=== PATIENT | male | born 1930 | race Two or more races ===

== ENCOUNTER 2018-07-12 14:47 | Inpatient (IN) | payer MEDICARE, BC ==
[~2018-07-12] VITALS: Ht 170.2 cm; Wt 85.3 kg
--- NOTE | 2018-07-12 14:47 | NUR ---
Received patient awake, verbal, wanting to go home, does not follow command & extremely uncooperative at the moment, MARIA, respiration:easy. Patient is for medical clearance by our ER doctor.
[2018-07-12] MEDS ORDERED: MEMA28CA5 PO (15:05)
[2018-07-12] MEDS ORDERED: CYAN10009 PO (15:05)
[2018-07-12] MEDS ORDERED: ATOR40TA PO (15:05)
[2018-07-12] MEDS ORDERED: COLC0.6T67 PO (15:05)
[2018-07-12] MEDS ORDERED: DONE10TA44 PO (15:05)
[2018-07-12] MEDS ORDERED: LOPE2CAP40 PO (15:05)
[2018-07-12] MEDS ORDERED: LEVE500T20 PO (15:05)
[2018-07-12] MEDS ORDERED: FEBU40TA PO (15:05)
[2018-07-12] MEDS ORDERED: LOSA50TA39 PO (15:05)
[2018-07-12] MEDS ORDERED: TAMS0.4C34 PO (15:05)
[2018-07-12] MEDS ORDERED: CHOL378P PO (15:05)
[2018-07-12] MEDS ORDERED: LORAZEPAM 2 MG/1 ML VIAL IM ONE (15:30)
[2018-07-12] MEDS ORDERED: HALOPERIDOL LACTATE 5 MG/1 ML VIAL IM ONE (15:30)
[2018-07-12] MEDS ORDERED: diphenhydrAMINE 50 MG/1 ML VIAL IM ONE (15:30)
[2018-07-12] MEDS ORDERED: HALOPERIDOL LACTATE 5 MG/1 ML VIAL ONE (15:32)
[2018-07-12] MEDS ORDERED: diphenhydrAMINE 50 MG/1 ML VIAL ONE (15:32)
[2018-07-12] MEDS ORDERED: LORAZEPAM 2 MG/1 ML VIAL ONE (15:32)
--- NOTE | 2018-07-12 16:16 | NUR ---
Aundrea-anal care done. Dried fecal matter seen on the buttocks & feet.
[2018-07-12 16:34] LABS: BASOPHILS # (AUTO) 0.1 K/uL (0.0-8.0); BASOPHILS % (AUTO) 1.1 % (0.0-2.0); EOSINOPHILS # (AUTO) 0.2 K/uL (0.0-0.7); EOSINOPHILS % (AUTO) 3.6 % (0.0-7.0); HEMOGLOBIN 13.3 g/dL (12.5-16.3); LYMPHOCYTES # (AUTO) 1.7 K/uL (20.0-40.0); LYMPHOCYTES % (AUTO) 28.7 % (20.5-51.5); MEAN CORPUSCULAR HEMOGLOBIN 32.8 uug (23.8-33.4); MEAN CORPUSCULAR HGB CONC 34 g/dL (32.5-36.3); MEAN CORPUSCULAR VOLUME 96.4 fL (73.0-96.2); MONOCYTES # (AUTO) 0.5 K/uL (2.0-10.0); MONOCYTES % (AUTO) 7.9 % (0.0-11.0); NEUTROPHILS # (AUTO) 3.6 K/uL (1.8-8.9); NEUTROPHILS % (AUTO) 58.7 % (38.5-71.5); PLATELET COUNT (AUTO) 134 K/uL (152-348); RED BLOOD CELL COUNT(AUTO) 4.05 MIL/uL (4.06-5.63); WHITE BLOOD COUNT (AUTO) 6.1 K/uL (3.6-10.2)
[2018-07-12 16:44] LABS: CARBON DIOXIDE 24 mmol/L (21-32); CHLORIDE 111 mmol/L (98-107); CREATININE 1.7 mg/dL (0.6-1.3); GLUCOSE 109 mg/dL (74-106); UREA NITROGEN, BLOOD 24 mg/dL (7-18)
[2018-07-12 16:46] LABS: ETHANOL < 3 MG/DL (0-0)
[2018-07-12 16:50] LABS: ACETAMINOPHEN < 2.0 ug/mL (10-30); ALANINE AMINOTRANSFERASE 22 U/L (16-63); ALKALINE PHOSPHATASE 123 U/L (50-136); ASPARTATE AMINOTRANSFERASE 14 U/L (15-37); BILIRUBIN,DIRECT 0.2 mg/dL (0.0-0.2); BILIRUBIN,TOTAL 0.8 mg/dL (0.2-1.0); TOTAL PROTEIN, SERUM 6.6 g/dL (6.4-8.2)
[2018-07-12 16:58] LABS: THYROID STIMULATING HORMONE 2.627 mIU/mL (0.358-3.740)
--- NOTE | 2018-07-12 17:45 | NUR ---
Patient is medically cleared by Dr Delgado. Patient is resting comfortably on gurney, directable, MARIA, respiration:easy- for transfer & admission to [facility] now.
[2018-07-12 18:06] LABS: *BILIRUBIN,URIN NEGATIVE (NEGATIVE); *BLOOD, URINE 1+ (NEGATIVE); *COLOR,URINE YELLOW (YELLOW); *KETONES,URINE NEGATIVE (NEGATIVE); *UROBILINOGEN,URINE 0.2 E.U./dl (NORMAL); LEUKOCYTE ESTERASE ,URINE TRACE (NEGATIVE); NITRITE, URINE NEGATIVE (NEGATIVE); PH,URINE 5.5 (5.0-8.0); UGLUCOSE NEGATIVE (NEGATIVE)
[2018-07-12 18:20] LABS: *AMPHETAMINE, URINE NEGATIVE (NEGATIVE); *BARBITURATE, URINE NEGATIVE (NEGATIVE); *CANNABINOID, URINE NEGATIVE (NEGATIVE); *COCCAINE, URINE NEGATIVE (NEGATIVE); *OPIATE, URINE NEGATIVE (NEGATIVE); *PHENCYCLIDINE SCREEN,URINE NEGATIVE (NEGATIVE)
[2018-07-12 18:23] LABS: *CLARITY,URINE HAZY (CLEAR)
[2018-07-12 18:25] LABS: MUCUS,URINE MODERATE /LPF (0-FEW); SQUAMOUS EPITHELIAL CELL,UR FEW /HPF (NONE SEEN); URINE AMORPHOUS URATE MODERATE /HPF
[2018-07-12] MEDS ORDERED: MAG HYDROX/AL HYDROX/SIMETH 30 ML LIQUID UDC PO PRN (18:45)
[2018-07-12] MEDS ORDERED: TEMAZEPAM 7.5 MG CAPSULE PO PRN (18:45)
[2018-07-12] MEDS ORDERED: MAGNESIUM HYDROXIDE 30 ML LIQUID UDC PO PRN (18:45)
--- NOTE | 2018-07-12 20:00 | NUR ---
GPS: Admitted to unit earlier an 87 yr.old male who was medically cleared in our E.R. Pt. arrived via gurney. Pt.is on a 72 hour hold for DTO/GD. Pt.too sedated but arousable at this time. Unable to sign papers/answer questions. Daughter "Mavis" made aware of pts admission to the unit. /CELESTINE Montoya aware of pts.arrival to the unit. Safe environment provided. Fall precautions observed. In no resp.distress noted.
[2018-07-12 20:04] VITALS: BP 152/76
[2018-07-12 20:27] VITALS: BP 152/76
[2018-07-12] MEDS: CHOLESTYRAMINE/SUCROSE 4 GM PACKET PO SCH (21:00)
[2018-07-12] MEDS: ATORVASTATIN 40 MG TABLET PO SCH (21:00)
[2018-07-13] MEDS: LORAZEPAM 1 MG TABLET PO PRN (05:07)
--- NOTE | 2018-07-13 05:10 | NUR ---
GPS: Pt.awake at this time. Confused,anxious and restless. Pacing up and down the hallway. Re-directed and re-assured at this time. Ativan 1mg given PO for anxiety. No aggressive behavior noted. Safety emphasized. Will monitor effectiveness and for further escalation of behavior.
[2018-07-13] MEDS: LEVETIRACETAM 500 MG TABLET PO SCH ×2 (08:33→16:07)
[2018-07-13] MEDS: LOSARTAN POTASSIUM 50 MG TABLET PO SCH (08:34)
[2018-07-13] MEDS: CHOLESTYRAMINE/SUCROSE 4 GM PACKET PO SCH ×2 (08:34→20:03)
[2018-07-13] MEDS: CYANOCOBALAMIN 1,000 MCG TABLET PO SCH (08:34)
[2018-07-13] MEDS: TAMSULOSIN HCL 0.4 MG CAP.SR.24H PO SCH (08:34)
[2018-07-13] MEDS: COLCHICINE 0.6 MG TABLET PO SCH (08:34)
--- NOTE | 2018-07-13 12:21 | NUR ---
PT CONFUSED AND DISORIENTED. UNSTEADY GAIT. PT ATTEMPTING TO SIT IN CHAIR, HELD ONTO TABLE WITH HANDS, WHILE USING HIS LEGS TO SQUAT TO LOWER BUTTOCKS TO FLOOR. DENIES PAIN OR DISCOMFORT. ABLE TO MAKE SOME NEEDS KNOWN. NO AGGRESSIVE OR COMBATIVE BEHAVIOR NOTED AT THIS TIME. DIFFICULT TO REDIRECT AT TIMES. POOR IMPULSE CONTROL.
--- NOTE | 2018-07-13 16:00 | NUR ---
Initial Discharge Plan: Patient is a 87 year old male who is a current resident at [facility] [[address] [place] [address]; ]. Per patient he states he likes it at the facility. power lineworker contacted the facility and spoke with precast worker, Yasir, regarding patient returning back to facility. Per Yasir, she will contact her supervisor chlorine liquefaction and call back. power lineworker to follow-up. power lineworker attempted to call patient daughterMavis [ ] , twice but received no answer and was unable to leave voicemail as phone just kept ringing. power lineworker to follow-up with patient daughter. power lineworker will collaborate with patient and MD on a safe and proper discharge. Addendum: 07/17/18 at 1548 by NIURKA VEGA Additional information: Additional information from patient daughter 07/17/2018: Per patient daughter/BETSYMavis [ ], she does not want her father to returnt to [facility]. Mavis states she is in the process of touring different [facility] for her father and mother. Mavis states that if an [facility] cannot be found prior to patient discharge, that she is open to short-term SNF placement.
[2018-07-13 16:45] VITALS: BP 137/92
--- NOTE | 2018-07-13 19:41 | NUR ---
GPS: Pt's B/P at this time is 152/107. ENGINEER GAS PUMPING STATION Rosa Maria informed with no new orders given. Will monitor closely.
[2018-07-13 19:45] VITALS: BP 152/107
[2018-07-13] MEDS: risperiDONE 0.5 MG TABLET PO SCH (20:03)
[2018-07-13] MEDS: ATORVASTATIN 40 MG TABLET PO SCH (20:03)
[2018-07-13] MEDS: RIVASTIGMINE TARTRATE 1.5 MG CAPSULE PO SCH (20:03)
[2018-07-13] MEDS: CEphaleXIN 500 MG CAPSULE PO SCH (22:09)
[2018-07-14] MEDS: CEphaleXIN 500 MG CAPSULE PO SCH ×3 (06:09→21:02)
[2018-07-14 07:30] VITALS: BP 154/88
[2018-07-14] MEDS: RIVASTIGMINE TARTRATE 1.5 MG CAPSULE PO SCH ×2 (08:32→20:23)
[2018-07-14] MEDS: TAMSULOSIN HCL 0.4 MG CAP.SR.24H PO SCH (08:32)
[2018-07-14] MEDS: LOSARTAN POTASSIUM 50 MG TABLET PO SCH (08:32)
[2018-07-14] MEDS: CHOLESTYRAMINE/SUCROSE 4 GM PACKET PO SCH ×2 (08:32→20:28)
[2018-07-14] MEDS: risperiDONE 0.5 MG TABLET PO SCH ×2 (08:32→20:24)
[2018-07-14] MEDS: CYANOCOBALAMIN 1,000 MCG TABLET PO SCH (08:32)
[2018-07-14] MEDS: COLCHICINE 0.6 MG TABLET PO SCH (08:32)
[2018-07-14] MEDS: LEVETIRACETAM 500 MG TABLET PO SCH ×2 (08:33→16:53)
[2018-07-14] MEDS: ACETAMINOPHEN 325 MG TABLET PO PRN (12:24)
[2018-07-14 16:01] VITALS: BP 94/55
[2018-07-14 20:19] VITALS: BP 90/55
[2018-07-14] MEDS: ATORVASTATIN 40 MG TABLET PO SCH (20:23)
[2018-07-14 20:24] VITALS: BP 134/88
[2018-07-14] MEDS: LORAZEPAM 1 MG TABLET PO PRN (21:05)
[2018-07-15] MEDS: CEphaleXIN 500 MG CAPSULE PO SCH ×3 (06:12→21:18)
[2018-07-15 07:12] LABS: BASOPHILS % (AUTO) 0.6 % (0.0-2.0); EOSINOPHILS # (AUTO) 0.2 K/uL (0.0-0.7); HEMATOCRIT 40.5 % (36.7-47.1); HEMOGLOBIN 13.5 g/dL (12.5-16.3); LYMPHOCYTES # (AUTO) 2.3 K/uL (20.0-40.0); LYMPHOCYTES % (AUTO) 29.6 % (20.5-51.5); MEAN CORPUSCULAR HGB CONC 33 g/dL (32.5-36.3); MEAN CORPUSCULAR VOLUME 95.7 fL (73.0-96.2); MONOCYTES # (AUTO) 0.6 K/uL (2.0-10.0); MONOCYTES % (AUTO) 8.3 % (0.0-11.0); NEUTROPHILS # (AUTO) 4.6 K/uL (1.8-8.9); NEUTROPHILS % (AUTO) 58.5 % (38.5-71.5); PLATELET COUNT (AUTO) 136 K/uL (152-348); RED BLOOD CELL COUNT(AUTO) 4.23 MIL/uL (4.06-5.63); WHITE BLOOD COUNT (AUTO) 7.8 K/uL (3.6-10.2)
[2018-07-15 07:33] LABS: CARBON DIOXIDE 22 mmol/L (21-32); CHLORIDE 110 mmol/L (98-107); CREATININE 2.5 mg/dL (0.6-1.3); GLUCOSE 89 mg/dL (74-106); MAGNESIUM 1.9 mg/dL (1.8-2.4); PHOSPHOROUS 4.6 mg/dL (2.5-4.9)
[2018-07-15 08:16] VITALS: BP 145/76
[2018-07-15 08:16] LABS: UREA NITROGEN, BLOOD 42 mg/dL (7-18)
[2018-07-15] MEDS: risperiDONE 0.5 MG TABLET PO SCH ×2 (08:31→20:23)
[2018-07-15] MEDS: TAMSULOSIN HCL 0.4 MG CAP.SR.24H PO SCH (08:31)
[2018-07-15] MEDS: LEVETIRACETAM 500 MG TABLET PO SCH ×2 (08:31→16:02)
[2018-07-15] MEDS: COLCHICINE 0.6 MG TABLET PO SCH (08:31)
[2018-07-15] MEDS: RIVASTIGMINE TARTRATE 1.5 MG CAPSULE PO SCH ×2 (08:31→20:23)
[2018-07-15] MEDS: CYANOCOBALAMIN 1,000 MCG TABLET PO SCH (08:32)
[2018-07-15] MEDS: LOSARTAN POTASSIUM 50 MG TABLET PO SCH (08:32)
[2018-07-15] MEDS: CHOLESTYRAMINE/SUCROSE 4 GM PACKET PO SCH ×2 (08:40→20:25)
[2018-07-15] MEDS: ACETAMINOPHEN 325 MG TABLET PO PRN (12:28)
[2018-07-15 16:00] VITALS: BP 104/69
[2018-07-15 19:53] VITALS: BP 128/81
[2018-07-15] MEDS: ATORVASTATIN 40 MG TABLET PO SCH (20:23)
[2018-07-15] MEDS ORDERED: CEphaleXIN 500 MG CAPSULE ONE (20:31)
[2018-07-16] MEDS: CEphaleXIN 500 MG CAPSULE PO SCH (06:20)
[2018-07-16 07:30] VITALS: BP 135/65
[2018-07-16 08:05] LABS: BASOPHILS # (AUTO) 0.1 K/uL (0.0-8.0); EOSINOPHILS # (AUTO) 0.3 K/uL (0.0-0.7); EOSINOPHILS % (AUTO) 3.9 % (0.0-7.0); HEMATOCRIT 40.3 % (36.7-47.1); HEMOGLOBIN 13.5 g/dL (12.5-16.3); LYMPHOCYTES # (AUTO) 2.4 K/uL (20.0-40.0); LYMPHOCYTES % (AUTO) 29.8 % (20.5-51.5); MEAN CORPUSCULAR HEMOGLOBIN 32.1 uug (23.8-33.4); MEAN CORPUSCULAR HGB CONC 33 g/dL (32.5-36.3); MEAN CORPUSCULAR VOLUME 95.9 fL (73.0-96.2); MONOCYTES # (AUTO) 0.6 K/uL (2.0-10.0); MONOCYTES % (AUTO) 7.9 % (0.0-11.0); NEUTROPHILS # (AUTO) 4.6 K/uL (1.8-8.9); NEUTROPHILS % (AUTO) 57.4 % (38.5-71.5); PLATELET COUNT (AUTO) 127 K/uL (152-348); WHITE BLOOD COUNT (AUTO) 8.1 K/uL (3.6-10.2)
[2018-07-16] MEDS: risperiDONE 0.5 MG TABLET PO SCH ×2 (08:19→20:18)
[2018-07-16] MEDS: RIVASTIGMINE TARTRATE 1.5 MG CAPSULE PO SCH ×2 (08:19→20:18)
[2018-07-16] MEDS: CYANOCOBALAMIN 1,000 MCG TABLET PO SCH (08:19)
[2018-07-16] MEDS: TAMSULOSIN HCL 0.4 MG CAP.SR.24H PO SCH (08:19)
[2018-07-16] MEDS: LEVETIRACETAM 500 MG TABLET PO SCH ×2 (08:19→16:50)
[2018-07-16 08:23] LABS: ALANINE AMINOTRANSFERASE 23 U/L (16-63); ALKALINE PHOSPHATASE 134 U/L (50-136); ASPARTATE AMINOTRANSFERASE 21 U/L (15-37); BILIRUBIN,TOTAL 0.6 mg/dL (0.2-1.0); CARBON DIOXIDE 18 mmol/L (21-32); CHLORIDE 114 mmol/L (98-107); CREATININE 2.4 mg/dL (0.6-1.3); GLUCOSE 84 mg/dL (74-106); MAGNESIUM 1.9 mg/dL (1.8-2.4); PHOSPHOROUS 4.2 mg/dL (2.5-4.9); POTASSIUM 4.7 mmol/L (3.5-5.1); TOTAL PROTEIN, SERUM 6.4 g/dL (6.4-8.2); UREA NITROGEN, BLOOD 51 mg/dL (7-18)
[2018-07-16] MEDS: CHOLESTYRAMINE/SUCROSE 4 GM PACKET PO SCH ×2 (08:34→20:18)
--- NOTE | 2018-07-16 09:46 | NUR ---
Discharge planning: scaffold worker called and spoke with professional development director, Justine Morales, at [facility] [[address] [place] [address]; ] regarding re-admittance upon discharge. Per Justine, patient may return pending improved behavior. Justine states that she will need to speak with Dr. Rivera regarding patient behavior and need a physician's report. scaffold worker will follow-up with [facility].
--- NOTE | 2018-07-16 10:34 | NUR ---
Firearms Report: head screen worker completed and submitted a [employer] firearms report for a 5150 DTO certification.
--- NOTE | 2018-07-16 10:38 | NUR ---
Discharge Planning: scaffold worker attempted for 3rd time to contact patient daughter, Mavis Olvera [[phone]], but was unable to speak with her or leave a voicemail as phone kept ringing and ringing. scaffold worker checked patient chart and found there was a different number listed for Mavis "[phone]". scaffold worker called this number and was again unable to speak with her or leave a voicemail as the mailbox was full. scaffold worker will continue to try and make contact with patient daughter.
[2018-07-16 15:10] VITALS: BP 112/68
[2018-07-16] MEDS: ACETAMINOPHEN 325 MG TABLET PO PRN (17:02)
[2018-07-16 20:01] VITALS: BP 113/81
[2018-07-16] MEDS: ATORVASTATIN 40 MG TABLET PO SCH (20:18)
[2018-07-16 20:25] LABS: *BILIRUBIN,URIN NEGATIVE (NEGATIVE); *BLOOD, URINE 1+ (NEGATIVE); *COLOR,URINE YELLOW (YELLOW); *KETONES,URINE TRACE (NEGATIVE); *UROBILINOGEN,URINE 0.2 E.U./dl (NORMAL); LEUKOCYTE ESTERASE ,URINE TRACE (NEGATIVE); NITRITE, URINE NEGATIVE (NEGATIVE); UGLUCOSE NEGATIVE (NEGATIVE)
[2018-07-16 20:45] LABS: *CLARITY,URINE SLIGHTLY HAZY (CLEAR)
[2018-07-16 20:46] LABS: BACTERIA,URINE FEW /HPF (NONE SEEN); SQUAMOUS EPITHELIAL CELL,UR FEW /HPF (NONE SEEN)
[2018-07-16 20:49] LABS: *CREATININE,URINE 195.6 mg/dL (30-125); *URINE TOTAL PROTEIN RANDOM 71.9 mg/dL (<150/24HR)
[2018-07-17 07:18] LABS: BASOPHILS # (AUTO) 0.1 K/uL (0.0-8.0); BASOPHILS % (AUTO) 0.9 % (0.0-2.0); EOSINOPHILS # (AUTO) 0.3 K/uL (0.0-0.7); EOSINOPHILS % (AUTO) 3.8 % (0.0-7.0); HEMATOCRIT 41.4 % (36.7-47.1); HEMOGLOBIN 13.8 g/dL (12.5-16.3); LYMPHOCYTES # (AUTO) 2.3 K/uL (20.0-40.0); LYMPHOCYTES % (AUTO) 28.9 % (20.5-51.5); MEAN CORPUSCULAR HGB CONC 33 g/dL (32.5-36.3); MEAN CORPUSCULAR VOLUME 95.8 fL (73.0-96.2); MONOCYTES # (AUTO) 0.7 K/uL (2.0-10.0); MONOCYTES % (AUTO) 8.4 % (0.0-11.0); NEUTROPHILS # (AUTO) 4.7 K/uL (1.8-8.9); PLATELET COUNT (AUTO) 141 K/uL (152-348); RED BLOOD CELL COUNT(AUTO) 4.32 MIL/uL (4.06-5.63); WHITE BLOOD COUNT (AUTO) 8.1 K/uL (3.6-10.2)
[2018-07-17 07:30] VITALS: BP 146/86
[2018-07-17 07:35] LABS: CARBON DIOXIDE 19 mmol/L (21-32); CHLORIDE 117 mmol/L (98-107); CREATININE 1.9 mg/dL (0.6-1.3); GLUCOSE 93 mg/dL (74-106); MAGNESIUM 2.2 mg/dL (1.8-2.4); PHOSPHOROUS 3.8 mg/dL (2.5-4.9); POTASSIUM 4.5 mmol/L (3.5-5.1); UREA NITROGEN, BLOOD 53 mg/dL (7-18)
[2018-07-17] MEDS: CYANOCOBALAMIN 1,000 MCG TABLET PO SCH (08:36)
[2018-07-17] MEDS: RIVASTIGMINE TARTRATE 1.5 MG CAPSULE PO SCH ×2 (08:36→20:03)
[2018-07-17] MEDS: CHOLESTYRAMINE/SUCROSE 4 GM PACKET PO SCH ×2 (08:36→20:03)
[2018-07-17] MEDS: TAMSULOSIN HCL 0.4 MG CAP.SR.24H PO SCH (08:36)
[2018-07-17] MEDS: risperiDONE 0.25 MG TABLET PO SCH ×2 (08:36→20:03)
[2018-07-17] MEDS: LEVETIRACETAM 500 MG TABLET PO SCH ×2 (08:36→16:42)
[2018-07-17] MEDS ORDERED: risperiDONE 0.5 MG TABLET PO SCH (09:00)
--- NOTE | 2018-07-17 11:29 | NUR ---
Discharge Planning: automotive worker foreman attempted for the 4th time to speak with patient daughter, Mavis Olvera [[phone]]. automotive worker foreman again had no success of reaching daughter and was unable to leave a voicemail as the voicemail box was full. automotive worker foreman will continue to try and get in contact with daughter. automotive worker foreman then called patient assisted living, [facility] [[address] [place] [address]; ] and spoke with helpdesk administrator, Sesra. Per Sesar, patient was living at the [facility] with his , Libby, in a one-bedroom accommodation. Sesar further states that patient daughter Mavis doesn't visit very often and he confirmed that the "[phone]" number is correct. Sesar states that no other numbers are on file. automotive worker foreman stressed the importance of reaching patient daughter in order to help with discharge planning. Sesar states he will call vp digital marketing social media and crm back after speaking with patient . Sesar then stated that patient is not welcome back upon discharge due to "aggressive and unmanageable behavior". Per Sesar, he suggests patient should discharge to a SNF. automotive worker foreman again stressed importance of contacting daughter especially in light of new information that patient will need new placement. automotive worker foreman awaiting call back.
[2018-07-17] MEDS: ACETAMINOPHEN 325 MG TABLET PO PRN (12:29)
[2018-07-17] MEDS ORDERED: PNEUMOCOCCAL 23-VAL P-SAC VAC 0.5 ML VIAL IM ONE (13:00)
[2018-07-17] MEDS ORDERED: INFLUENZA VACCINE 2018-2019 0.5 ML DISP.SYRIN IM ONE (13:00)
[2018-07-17 16:11] VITALS: BP 132/79
[2018-07-17] MEDS: ATORVASTATIN 40 MG TABLET PO SCH (20:03)
[2018-07-17 20:04] VITALS: BP 120/79
[2018-07-18 07:30] VITALS: BP 133/76
[2018-07-18 07:50] LABS: BASOPHILS # (AUTO) 0.1 K/uL (0.0-8.0); BASOPHILS % (AUTO) 1.1 % (0.0-2.0); EOSINOPHILS # (AUTO) 0.3 K/uL (0.0-0.7); EOSINOPHILS % (AUTO) 3.6 % (0.0-7.0); HEMATOCRIT 39.6 % (36.7-47.1); HEMOGLOBIN 13.3 g/dL (12.5-16.3); LYMPHOCYTES # (AUTO) 2.1 K/uL (20.0-40.0); LYMPHOCYTES % (AUTO) 26.2 % (20.5-51.5); MEAN CORPUSCULAR HEMOGLOBIN 32.2 uug (23.8-33.4); MEAN CORPUSCULAR HGB CONC 34 g/dL (32.5-36.3); MEAN CORPUSCULAR VOLUME 96.2 fL (73.0-96.2); MONOCYTES # (AUTO) 0.7 K/uL (2.0-10.0); MONOCYTES % (AUTO) 8.2 % (0.0-11.0); NEUTROPHILS # (AUTO) 4.8 K/uL (1.8-8.9); NEUTROPHILS % (AUTO) 60.9 % (38.5-71.5); PLATELET COUNT (AUTO) 142 K/uL (152-348); RED BLOOD CELL COUNT(AUTO) 4.12 MIL/uL (4.06-5.63); WHITE BLOOD COUNT (AUTO) 7.9 K/uL (3.6-10.2)
[2018-07-18 07:58] LABS: CARBON DIOXIDE 20 mmol/L (21-32); CHLORIDE 117 mmol/L (98-107); CREATININE 1.8 mg/dL (0.6-1.3); GLUCOSE 90 mg/dL (74-106); POTASSIUM 4.2 mmol/L (3.5-5.1); UREA NITROGEN, BLOOD 51 mg/dL (7-18)
[2018-07-18] MEDS: risperiDONE 0.25 MG TABLET PO SCH ×2 (09:24→20:16)
[2018-07-18] MEDS: TAMSULOSIN HCL 0.4 MG CAP.SR.24H PO SCH (09:24)
[2018-07-18] MEDS: CYANOCOBALAMIN 1,000 MCG TABLET PO SCH (09:24)
[2018-07-18] MEDS: LEVETIRACETAM 500 MG TABLET PO SCH ×2 (09:24→16:09)
[2018-07-18] MEDS: RIVASTIGMINE TARTRATE 1.5 MG CAPSULE PO SCH ×2 (09:24→20:16)
[2018-07-18] MEDS: CHOLESTYRAMINE/SUCROSE 4 GM PACKET PO SCH ×2 (09:25→20:16)
[2018-07-18 16:00] VITALS: BP 141/84
--- NOTE | 2018-07-18 16:54 | NUR ---
Process Group Note: Patients were asked to answer the question of "What is one thing you would change about yourself and why? Subjective: "Yeah" Objective: Patient appeared to be confused and made no eye contact with peers or high school social studies teacher. Assessment: Patient mental status prevents patient from actively participating in group. Plan: Encourage group attendance as scheduled. mortar worker will modify group for patient in an effort to have patient engaged and participate at his cognitive functional level.
[2018-07-18 20:00] VITALS: BP 136/72
[2018-07-18] MEDS: ATORVASTATIN 40 MG TABLET PO SCH (20:16)
[2018-07-18] MEDS: METOPROLOL TARTRATE 25 MG TABLET PO SCH (20:52)
[2018-07-19 07:30] VITALS: BP 126/71
[2018-07-19] MEDS: METOPROLOL TARTRATE 25 MG TABLET PO SCH ×2 (08:22→20:25)
[2018-07-19] MEDS: CYANOCOBALAMIN 1,000 MCG TABLET PO SCH (08:22)
[2018-07-19] MEDS: LEVETIRACETAM 500 MG TABLET PO SCH ×2 (08:22→16:27)
[2018-07-19] MEDS: RIVASTIGMINE TARTRATE 1.5 MG CAPSULE PO SCH ×2 (08:22→20:23)
[2018-07-19] MEDS: risperiDONE 0.25 MG TABLET PO SCH ×2 (08:22→20:24)
[2018-07-19] MEDS: CHOLESTYRAMINE/SUCROSE 4 GM PACKET PO SCH ×2 (08:23→20:26)
--- NOTE | 2018-07-19 11:20 | NUR ---
Gps/Anuja Shine COMPENSATION/BENEFITS SPECIALIST working with Dr Kay (PMD) from [facility] called wants information on patient's progress, release of medical information is on file in patient's chart. Informations provided re-medications, and patient progress, claimed wanting to talk to Field Marketing Representative about dc. plan.
[2018-07-19] MEDS: LORAZEPAM 1 MG TABLET PO PRN (15:10)
--- NOTE | 2018-07-19 15:40 | NUR ---
Discharge Planning: toll transmission worker had conversation with Dr. Rivera about patient discharge plan. Per Dr. Rivera, who spoke with education administrator at [facility], patient is able to return to [facility] [[address] [place] [address]; ] in the ch[facility] unit. toll transmission worker called and left voicemail with education administrator of facility, Sesar, to confirm this and is awaiting call back. In the meantime, manager social called and spoke with patient daughter, Mavis [[phone]], discussing possible return to [facility]. Per Mavis, she agrees with this plan. toll transmission worker to follow-up with Mavis tomorrow to confirm placement.
[2018-07-19] MEDS: TAMSULOSIN HCL 0.4 MG CAP.SR.24H PO SCH (20:23)
[2018-07-19 21:29] VITALS: BP 156/76
[2018-07-19 22:00] VITALS: BP 140/68
--- NOTE | 2018-07-20 05:50 | NUR ---
GPS: REMAIN CONFUSED AND UNCOOPERATIVE WITH NURSING CARE. ASSISTED WITH ADL'S. SLEPT 6:30 HRS THROUGH THE NIGHT.RESTING IN BED COMFORTABLY.NO AGGRESSIVE BEHAVIOR NOTED AT THIS TIME. CONTINUE MONITORING FOR SAFETY..
[2018-07-20 07:30] VITALS: BP 107/49
[2018-07-20] MEDS: RIVASTIGMINE TARTRATE 1.5 MG CAPSULE PO SCH ×2 (09:37→20:36)
[2018-07-20] MEDS: CYANOCOBALAMIN 1,000 MCG TABLET PO SCH (09:37)
[2018-07-20] MEDS: risperiDONE 0.5 MG TABLET PO SCH (09:37)
[2018-07-20] MEDS: LEVETIRACETAM 500 MG TABLET PO SCH ×2 (09:38→16:07)
[2018-07-20] MEDS: METOPROLOL TARTRATE 25 MG TABLET PO SCH ×2 (09:39→20:37)
[2018-07-20] MEDS: CHOLESTYRAMINE/SUCROSE 4 GM PACKET PO SCH ×2 (09:54→21:23)
--- NOTE | 2018-07-20 10:22 | NUR ---
Discharge Planning: call worker received voicemail from Sesar, travel administrator, at [facility] [[address] [place] [address]; ] stating that patient [place] [facility] at the facility once ready for discharge. call worker called and informed patient daughter [[phone]], Mavis, who is agreeable with plan.
[2018-07-20 16:00] VITALS: BP 114/66
--- NOTE | 2018-07-20 16:43 | NUR ---
Left on bed rest, vitals signs stable, no reports of distress. compliant with med administration and nursing care. Will continue with care plan.
[2018-07-20 20:16] VITALS: BP 130/84
[2018-07-20] MEDS: risperiDONE 0.25 MG TABLET PO SCH (20:36)
[2018-07-20] MEDS: TAMSULOSIN HCL 0.4 MG CAP.SR.24H PO SCH (20:37)
[2018-07-20] MEDS ORDERED: Z GUARD REMEDY PASTE 57 GM TUBE TOP PRN (22:00)
[2018-07-20] MEDS ORDERED: risperiDONE 0.25 MG TABLET PO SCH (23:00)
--- NOTE | 2018-07-20 23:09 | NUR ---
Outside pharmacy took 2 hours to verify this medication. Consent was faxed immediately and call was placed by secondary market manager Judy O to verify medication right after the order was put in by the MD. Pt sleeping by the time medication was verified, Now Dose of Risperdal 0.25mg held.
[2018-07-21 07:30] VITALS: BP 135/70
[2018-07-21] MEDS: risperiDONE 0.5 MG TABLET PO SCH (08:57)
[2018-07-21] MEDS: RIVASTIGMINE TARTRATE 1.5 MG CAPSULE PO SCH ×2 (08:57→21:55)
[2018-07-21] MEDS: METOPROLOL TARTRATE 25 MG TABLET PO SCH ×2 (08:58→21:55)
[2018-07-21] MEDS: LEVETIRACETAM 500 MG TABLET PO SCH ×2 (08:58→17:12)
[2018-07-21] MEDS: CYANOCOBALAMIN 1,000 MCG TABLET PO SCH (08:58)
[2018-07-21] MEDS: CHOLESTYRAMINE/SUCROSE 4 GM PACKET PO SCH ×2 (08:59→21:55)
--- NOTE | 2018-07-21 13:14 | NUR ---
Gps/Refrigeration Mechanic- Assisted with meals, remains sitting upright, instructed to double swallow, after ech bites, no coughing noted, fluids offered sips. Patient appeared to be lethargic, arousable, follow simple directions. B/P 106/58- HR 87, 02 sat 96%, temp 97.6. Speech Therapist was in earlier this am., patient was evaluated, no significant recommendations noted, will benefit chopped , no need for thick liquids. Lungs clear, no congestion noted.
--- NOTE | 2018-07-21 15:00 | NUR ---
Gps/Support Services Specialist- Assisted back to bed, max assist w/ 3 staff assisting, patient difficulty standing up. Repositioned to his left side, pressure relief, coccygeal redness, good skin care provided, , scrotal redness, kept clean and dry, z-guard applied to coccyx and scrotal sac/groin area redness. bilateral heels floated.
[2018-07-21 16:00] VITALS: BP 138/63
--- NOTE | 2018-07-21 18:30 | NUR ---
Gps/Door Assembler- Poor intake dinner, sleepy, per DIGITAL STRATEGIST SENIOR MANAGER patient has not voided at this time. [facility] floor called to borrow BVI scanner, unable to find, none on SA. none in Rehab. will notify dept. ([facility]) when able to trace where abouts of BVI machine. No bladder distension noted.
[2018-07-21] MEDS ORDERED: risperiDONE 0.5 MG TABLET PO SCH (21:00)
[2018-07-21 21:37] VITALS: BP 136/69
[2018-07-21] MEDS: TAMSULOSIN HCL 0.4 MG CAP.SR.24H PO SCH (21:55)
[2018-07-22 07:30] VITALS: BP 103/68
[2018-07-22] MEDS: CHOLESTYRAMINE/SUCROSE 4 GM PACKET PO SCH (09:00)
[2018-07-22] MEDS: CYANOCOBALAMIN 1,000 MCG TABLET PO SCH (09:00)
[2018-07-22] MEDS: METOPROLOL TARTRATE 25 MG TABLET PO SCH (09:00)
[2018-07-22] MEDS: RIVASTIGMINE TARTRATE 1.5 MG CAPSULE PO SCH (09:00)
[2018-07-22] MEDS: LEVETIRACETAM 500 MG TABLET PO SCH ×2 (09:00→17:00)
[2018-07-22] MEDS ORDERED: risperiDONE 0.5 MG TABLET PO SCH (09:00)
--- NOTE | 2018-07-22 11:07 | NUR ---
Gps/Shiftman-Tried to awaken pt. for late breakfast, HOB to high oconnell position, responds and answeres to sinmple questions. When tries to feed pt. w/ oatmeal, able to open mouth but not initiating to swallow at this time, goes right back to sleep. Unable to feed pt. at this time, unable to administer routine am. meds. Temp oral 99.8 , b/p 155/72, 02 sat 95%, resp. 22, kept HOB elevated. , no resp. distress. Repositioned for comfort, pressure relief. Charge Nurse was informed of patient condition.
[2018-07-22 11:15] VITALS: BP 155/72
--- NOTE | 2018-07-22 12:31 | NUR ---
Gps/Relations Coordinator- Unable to eat lunch at this time, patient lethargic, not safe to feed pt.
[2018-07-22] MEDS ORDERED: IV NORMAL SALINE 500 ML IV ONE (13:15)
--- NOTE | 2018-07-22 13:55 | NUR ---
Gps/Dynamometer Repairer- Saline lock inserted to right upper arm # 20 insyte, IV of NS 500 ml was ordered by Cas ARAUJO. IV fluids was started wide open x1 bag as ordered, tolerated well.
[2018-07-22 16:00] VITALS: BP 143/72
[2018-07-22 17:03] LABS: BASOPHILS # (AUTO) 0.1 K/uL (0.0-8.0); BASOPHILS % (AUTO) 0.4 % (0.0-2.0); EOSINOPHILS % (AUTO) 0.1 % (0.0-7.0); HEMOGLOBIN 12.8 g/dL (12.5-16.3); LYMPHOCYTES # (AUTO) 1.8 K/uL (20.0-40.0); LYMPHOCYTES % (AUTO) 10.4 % (20.5-51.5); MEAN CORPUSCULAR HEMOGLOBIN 31.6 uug (23.8-33.4); MEAN CORPUSCULAR HGB CONC 34 g/dL (32.5-36.3); MEAN CORPUSCULAR VOLUME 94.1 fL (73.0-96.2); MONOCYTES # (AUTO) 1.9 K/uL (2.0-10.0); MONOCYTES % (AUTO) 10.7 % (0.0-11.0); NEUTROPHILS # (AUTO) 13.8 K/uL (1.8-8.9); NEUTROPHILS % (AUTO) 78.4 % (38.5-71.5); PLATELET COUNT (AUTO) 129 K/uL (152-348); RED BLOOD CELL COUNT(AUTO) 4.04 MIL/uL (4.06-5.63); WHITE BLOOD COUNT (AUTO) 17.6 K/uL (3.6-10.2)
[2018-07-22 17:08] LABS: CARBON DIOXIDE 20 mmol/L (21-32); CHLORIDE 111 mmol/L (98-107); CREATININE 2.2 mg/dL (0.6-1.3); GLUCOSE 104 mg/dL (74-106); POTASSIUM 4.5 mmol/L (3.5-5.1); UREA NITROGEN, BLOOD 53 mg/dL (7-18)
--- NOTE | 2018-07-22 17:15 | NUR ---
CALLED DR. LAGUNA, DESCRIPTIVE CATALOG LIBRARIAN AND INFORMED OF PT'S LABS COMING BACK ABNORMAL. ORDERED TO DISCHARGE TO [facility] WITH DX OF SEPSIS. CALLED DR. BOWMAN AND ORDERED FOR HOLD TO BE CONTINUED. FAMILY AT BEDSIDE AT THIS TIME.
--- NOTE | 2018-07-22 17:30 | NUR ---
Gps/Utility Appraiser- Patient too lethargic, [id number] to administer, routine meds. at this time. Noted WBC elevated this pm 17.6, Bun 53 ,Creat .2.2, Charge Nurse was informed, Ashley Cardozo DNP was notified orders received.
--- NOTE | 2018-07-22 18:00 | NUR ---
Gps/Truck Driver'S Offsider- Patient's family( Daughter and ) in to visit was well informed of patient's condistion will be discharge to Medical floor as ordered , for higher level of care. All belongings given back to patient./
--- NOTE | 2018-07-22 20:21 | NUR ---
PATIENT WAS TRANSFERRED TO MED SURG ROOM 201A IN STABLE CONDITION WITH ALL HER BELONGINGS WITH DX SEPSIS. REPORT WAS GIVEN TO NIKO GARZA.
[2018-07-22] MEDS ORDERED: METO25TA6 PO (23:47)
== END 2018-07-22 20:27 | disposition short-term general hospital (02) | DRG 885 ==
LOC: ER 14:49 → GPS 18:05
PROVIDERS: ADMIT Psychiatry & Neurology Psychiatry; ATTEND Registered Nurse
DX: F23 Brief psychotic disorder (principal); N18.9 Chronic kidney disease, unspecified; N17.0 Acute kidney failure with tubular necrosis; A41.9 Sepsis, unspecified organism; F02.81 Dementia in other diseases classified elsewhere, unspecified severity, with behavioral disturbance; N39.0 Urinary tract infection, site not specified; G30.1 Alzheimer's disease with late onset; Z79.899 Other long term (current) drug therapy; I13.10 Hypertensive heart and chronic kidney disease without heart failure, with stage 1 through stage 4 chronic kidney disease, or unspecified chronic kidney disease; M10.9 Gout, unspecified; N28.1 Cyst of kidney, acquired; M89.9 Disorder of bone, unspecified; N40.0 Benign prostatic hyperplasia without lower urinary tract symptoms; I70.0 Atherosclerosis of aorta; E78.5 Hyperlipidemia, unspecified; E66.9 Obesity, unspecified; Z68.29 Body mass index [BMI] 29.0-29.9, adult; Z71.3 Dietary counseling and surveillance; B96.89 Other specified bacterial agents as the cause of diseases classified elsewhere
CPT/HCPCS: 36415; 70030-TC; 70450; 71045; 76775; 80307; 83605; 83735; 84100; 84156; 84300; 84443; 85025; 85730; 87040; 87086; 90686; 90732; 92610; 93005; 97110; 97116; 97530; A4663; C1758; G0480; G0480-TC; J1200; J1630; J2060; J7040

== ENCOUNTER 2018-07-22 19:14 | Inpatient (IN) | payer MEDICARE, BC ==
[~2018-07-22] VITALS: Ht 170.2 cm; Wt 86.6 kg
[~2018-07-22 19:14] MED LIST: ATOR40TA PO; CHOL378P PO; COLC0.6T67 PO; CYAN-51 PO; FEBU40TA PO; LEVE500T20 PO; LOPE2CAP40 PO; LOSA50TA39 PO; TAMS0.4C34 PO
[2018-07-22] MEDS ORDERED: ZOLPIDEM 5 MG TABLET PO PRN (19:45)
[2018-07-22] MEDS ORDERED: HYDROCODONE/APAP 5-325MG TABLET PO PRN (19:45)
[2018-07-22] MEDS ORDERED: MAGNESIUM HYDROXIDE 30 ML LIQUID UDC PO PRN (19:45)
[2018-07-22] MEDS ORDERED: Z GUARD REMEDY PASTE 57 GM TUBE TOP PRN ×2 (19:45→23:15)
[2018-07-22] MEDS ORDERED: ACETAMINOPHEN 325 MG TABLET PO PRN (19:45)
[2018-07-22] MEDS ORDERED: ONDANSETRON 4 MG/2 ML VIAL IV PRN (19:45)
[2018-07-22] MEDS ORDERED: LORAZEPAM 2 MG/1 ML VIAL IV PRN (19:45)
[2018-07-22 20:30] VITALS: BP 136/80
[2018-07-22] MEDS ORDERED: PIPERACILLIN/TAZOBACTAM/D5W 50 ML IV SCH (20:30)
[2018-07-22] MEDS ORDERED: PIPERACILLIN/TAZOBACTAM/D5W 50 ML IV ONE ×2 (21:00→21:18)
[2018-07-22] MEDS: IV NS 1000 ML 1,000 ML IV PRN (21:01)
[2018-07-22] MEDS ORDERED: LEVETIRACETAM 500 MG/5 ML VIAL IV ONE (21:17)
[2018-07-22] MEDS: LEVETIRACETAM IV 500 MG in IV DEXTROSE 5% 100 ML IV SCH (22:30)
[2018-07-22] MEDS ORDERED: METO25TA6 PO (23:47)
[2018-07-23] MEDS ORDERED: ACETAMINOPHEN 325 MG TABLET PO PRN (03:37)
[2018-07-23] MEDS ORDERED: HYDROCODONE/APAP 5-325MG TABLET PO PRN (03:38)
[2018-07-23] MEDS ORDERED: MAGNESIUM HYDROXIDE 30 ML LIQUID UDC PO PRN (03:39)
[2018-07-23] MEDS: ACETAMINOPHEN 650 MG SUPP.RECT RC PRN (03:51)
[2018-07-23 04:00] VITALS: BP 141/80
[2018-07-23 04:21] LABS: *BILIRUBIN,URIN NEGATIVE (NEGATIVE); *BLOOD, URINE 2+ (NEGATIVE); *CLARITY,URINE CLOUDY (CLEAR); *COLOR,URINE YELLOW (YELLOW); *KETONES,URINE NEGATIVE (NEGATIVE); *UROBILINOGEN,URINE 0.2 E.U./dl (NORMAL); LEUKOCYTE ESTERASE ,URINE NEGATIVE (NEGATIVE); NITRITE, URINE NEGATIVE (NEGATIVE); UGLUCOSE NEGATIVE (NEGATIVE)
[2018-07-23] MEDS ORDERED: PIPERACILLIN/TAZOBACTAM/D5W 50 ML IV ONE (04:29)
[2018-07-23 05:10] LABS: WBC,URINE 0-3 /HPF (0-3)
[2018-07-23 05:11] LABS: BACTERIA,URINE NONE SEEN /HPF (NONE SEEN); SQUAMOUS EPITHELIAL CELL,UR FEW /HPF (NONE SEEN); URIC ACID CRYSTALS,URINE MANY /HPF (NONE SEEN)
[2018-07-23] MEDS: PIPERACILLIN/TAZOBACTAM/D5W 3.375 G in PREMIXED 1 EACH IV SCH ×3 (06:01→21:29)
[2018-07-23 06:35] LABS: BASOPHILS # (AUTO) 0.1 K/uL (0.0-8.0); BASOPHILS % (AUTO) 0.4 % (0.0-2.0); EOSINOPHILS % (AUTO) 0.1 % (0.0-7.0); HEMATOCRIT 35.3 % (36.7-47.1); LYMPHOCYTES # (AUTO) 1.4 K/uL (20.0-40.0); MEAN CORPUSCULAR HEMOGLOBIN 31.9 uug (23.8-33.4); MEAN CORPUSCULAR HGB CONC 34 g/dL (32.5-36.3); MEAN CORPUSCULAR VOLUME 94.1 fL (73.0-96.2); MONOCYTES # (AUTO) 1.4 K/uL (2.0-10.0); MONOCYTES % (AUTO) 10.1 % (0.0-11.0); NEUTROPHILS # (AUTO) 11.4 K/uL (1.8-8.9); NEUTROPHILS % (AUTO) 79.4 % (38.5-71.5); PLATELET COUNT (AUTO) 126 K/uL (152-348); RED BLOOD CELL COUNT(AUTO) 3.75 MIL/uL (4.06-5.63); WHITE BLOOD COUNT (AUTO) 14.4 K/uL (3.6-10.2)
[2018-07-23 06:55] LABS: CARBON DIOXIDE 21 mmol/L (21-32); CHLORIDE 114 mmol/L (98-107); CHOLESTEROL 82 mg/dL (<200); CREATININE 2.2 mg/dL (0.6-1.3); GLUCOSE 109 mg/dL (74-106); HDL CHOLESTEROL 34 mg/dL (40-60); MAGNESIUM 1.8 mg/dL (1.8-2.4); PHOSPHOROUS 4.1 mg/dL (2.5-4.9); POTASSIUM 4.2 mmol/L (3.5-5.1); TRIGLYCERIDES 79 MG/DL (30-150); UREA NITROGEN, BLOOD 56 mg/dL (7-18)
[2018-07-23 08:00] VITALS: BP 135/66
[2018-07-23] MEDS: RIVASTIGMINE TARTRATE 1.5 MG CAPSULE PO SCH ×2 (09:00→21:00)
[2018-07-23] MEDS: LEVETIRACETAM IV 500 MG in IV DEXTROSE 5% 100 ML IV SCH ×2 (09:05→20:51)
[2018-07-23] MEDS: PANTOPRAZOLE SODIUM 40 MG VIAL IV SCH (11:26)
[2018-07-23 15:16] VITALS: BP 139/85
[2018-07-23] MEDS ORDERED: CHOLESTYRAMINE PO SCH (16:45)
[2018-07-23] MEDS ORDERED: SUCROSE PO SCH (16:45)
[2018-07-23] MEDS ORDERED: LEVETIRACETAM 500 MG TABLET PO SCH (17:00)
[2018-07-23] MEDS: CHOLESTYRAMINE/ASPARTAME 4 G/PKT PACKET PO SCH (18:00)
[2018-07-23 19:00] VITALS: BP 122/59
[2018-07-23] MEDS: IV NS 1000 ML 1,000 ML IV PRN (20:55)
[2018-07-23] MEDS: METOPROLOL TARTRATE 25 MG TABLET PO SCH (21:00)
[2018-07-23] MEDS: risperiDONE 0.5 MG TABLET PO SCH (21:00)
[2018-07-23] MEDS: ATORVASTATIN 40 MG TABLET PO SCH (21:00)
[2018-07-24 04:00] VITALS: BP 147/74
[2018-07-24] MEDS: PIPERACILLIN/TAZOBACTAM/D5W 3.375 G in PREMIXED 1 EACH IV SCH ×3 (05:55→22:36)
[2018-07-24 06:32] LABS: BASOPHILS # (AUTO) 0.1 K/uL (0.0-8.0); BASOPHILS % (AUTO) 0.5 % (0.0-2.0); EOSINOPHILS # (AUTO) 0.1 K/uL (0.0-0.7); EOSINOPHILS % (AUTO) 0.6 % (0.0-7.0); HEMATOCRIT 36.6 % (36.7-47.1); HEMOGLOBIN 12.4 g/dL (12.5-16.3); LYMPHOCYTES # (AUTO) 1.3 K/uL (20.0-40.0); LYMPHOCYTES % (AUTO) 11.1 % (20.5-51.5); MEAN CORPUSCULAR HEMOGLOBIN 32.1 uug (23.8-33.4); MEAN CORPUSCULAR HGB CONC 34 g/dL (32.5-36.3); MEAN CORPUSCULAR VOLUME 94.4 fL (73.0-96.2); MONOCYTES % (AUTO) 8.1 % (0.0-11.0); NEUTROPHILS # (AUTO) 9.3 K/uL (1.8-8.9); NEUTROPHILS % (AUTO) 79.7 % (38.5-71.5); PLATELET COUNT (AUTO) 137 K/uL (152-348); RED BLOOD CELL COUNT(AUTO) 3.88 MIL/uL (4.06-5.63); WHITE BLOOD COUNT (AUTO) 11.7 K/uL (3.6-10.2)
[2018-07-24 06:53] LABS: CARBON DIOXIDE 22 mmol/L (21-32); CHLORIDE 116 mmol/L (98-107); CREATININE 2.1 mg/dL (0.6-1.3); GLUCOSE 92 mg/dL (74-106); MAGNESIUM 2.1 mg/dL (1.8-2.4); PHOSPHOROUS 3.9 mg/dL (2.5-4.9)
[2018-07-24 07:04] LABS: UREA NITROGEN, BLOOD 59 mg/dL (7-18)
[2018-07-24] MEDS: CHOLESTYRAMINE/ASPARTAME 4 G/PKT PACKET PO SCH ×2 (08:00→16:47)
[2018-07-24] MEDS: METOPROLOL TARTRATE 25 MG TABLET PO SCH ×2 (09:00→21:00)
[2018-07-24] MEDS: TAMSULOSIN HCL 0.4 MG CAP.SR.24H PO SCH (09:00)
[2018-07-24] MEDS: RIVASTIGMINE TARTRATE 1.5 MG CAPSULE PO SCH ×2 (09:00→21:00)
[2018-07-24] MEDS: LOSARTAN POTASSIUM 50 MG TABLET PO SCH (09:00)
[2018-07-24] MEDS: COLCHICINE 0.6 MG TABLET PO SCH (09:00)
[2018-07-24] MEDS: risperiDONE 0.5 MG TABLET PO SCH ×2 (09:00→21:00)
[2018-07-24] MEDS: CYANOCOBALAMIN 1,000 MCG TABLET PO SCH (09:00)
[2018-07-24] MEDS: LEVETIRACETAM IV 500 MG in IV DEXTROSE 5% 100 ML IV SCH ×2 (09:11→21:43)
[2018-07-24 11:21] VITALS: BP 140/77
[2018-07-24] MEDS: PANTOPRAZOLE SODIUM 40 MG VIAL IV SCH (12:32)
[2018-07-24 15:24] VITALS: BP 136/68
[2018-07-24 19:15] VITALS: BP 157/91
[2018-07-24] MEDS: ATORVASTATIN 40 MG TABLET PO SCH (21:00)
[2018-07-25 03:16] VITALS: BP 156/87
[2018-07-25] MEDS: PIPERACILLIN/TAZOBACTAM/D5W 3.375 G in PREMIXED 1 EACH IV SCH ×3 (05:01→21:44)
[2018-07-25] MEDS: CHOLESTYRAMINE/ASPARTAME 4 G/PKT PACKET PO SCH ×2 (08:00→17:21)
[2018-07-25] MEDS: COLCHICINE 0.6 MG TABLET PO SCH (08:12)
[2018-07-25] MEDS: LOSARTAN POTASSIUM 50 MG TABLET PO SCH (08:12)
[2018-07-25] MEDS: TAMSULOSIN HCL 0.4 MG CAP.SR.24H PO SCH (08:12)
[2018-07-25] MEDS: RIVASTIGMINE TARTRATE 1.5 MG CAPSULE PO SCH ×2 (08:12→20:44)
[2018-07-25] MEDS: CYANOCOBALAMIN 1,000 MCG TABLET PO SCH (08:13)
[2018-07-25] MEDS: METOPROLOL TARTRATE 25 MG TABLET PO SCH ×2 (08:13→20:56)
[2018-07-25] MEDS: risperiDONE 0.5 MG TABLET PO SCH ×2 (08:13→20:44)
[2018-07-25] MEDS: LEVETIRACETAM IV 500 MG in IV DEXTROSE 5% 100 ML IV SCH ×2 (08:30→20:43)
[2018-07-25] MEDS: IV NS 1000 ML 1,000 ML IV PRN (09:38)
[2018-07-25 09:55] LABS: BASOPHILS # (AUTO) 0.1 K/uL (0.0-8.0); BASOPHILS % (AUTO) 0.7 % (0.0-2.0); EOSINOPHILS # (AUTO) 0.1 K/uL (0.0-0.7); EOSINOPHILS % (AUTO) 1.4 % (0.0-7.0); HEMATOCRIT 36.2 % (36.7-47.1); HEMOGLOBIN 12.6 g/dL (12.5-16.3); LYMPHOCYTES # (AUTO) 1.3 K/uL (20.0-40.0); LYMPHOCYTES % (AUTO) 11.7 % (20.5-51.5); MEAN CORPUSCULAR HEMOGLOBIN 32.8 uug (23.8-33.4); MEAN CORPUSCULAR HGB CONC 35 g/dL (32.5-36.3); MEAN CORPUSCULAR VOLUME 94.7 fL (73.0-96.2); MONOCYTES # (AUTO) 0.8 K/uL (2.0-10.0); MONOCYTES % (AUTO) 7.8 % (0.0-11.0); NEUTROPHILS # (AUTO) 8.5 K/uL (1.8-8.9); NEUTROPHILS % (AUTO) 78.4 % (38.5-71.5); PLATELET COUNT (AUTO) 167 K/uL (152-348); RED BLOOD CELL COUNT(AUTO) 3.82 MIL/uL (4.06-5.63); WHITE BLOOD COUNT (AUTO) 10.8 K/uL (3.6-10.2)
[2018-07-25 10:05] LABS: CARBON DIOXIDE 24 mmol/L (21-32); CHLORIDE 120 mmol/L (98-107); CREATININE 2.4 mg/dL (0.6-1.3); GLUCOSE 106 mg/dL (74-106); MAGNESIUM 2.1 mg/dL (1.8-2.4); PHOSPHOROUS 3.8 mg/dL (2.5-4.9); POTASSIUM 3.9 mmol/L (3.5-5.1); UREA NITROGEN, BLOOD 64 mg/dL (7-18)
[2018-07-25] MEDS: PANTOPRAZOLE SODIUM 40 MG VIAL IV SCH (10:51)
[2018-07-25 11:44] VITALS: BP 132/77
[2018-07-25] MEDS: IV D5W 1000ML 1,000 ML IV PRN (12:53)
[2018-07-25] MEDS ORDERED: BARIUM SULFATE 240 ML ORAL.SUSP PO ONE (13:21)
[2018-07-25] MEDS ORDERED: BARIUM SULFATE 148 GM SUSP.RECON PO ONE (13:21)
[2018-07-25 15:41] VITALS: BP 143/71
[2018-07-25 19:14] VITALS: BP 154/97
[2018-07-25] MEDS: ATORVASTATIN 40 MG TABLET PO SCH (20:44)
[2018-07-26 03:32] VITALS: BP 133/73
[2018-07-26] MEDS: PIPERACILLIN/TAZOBACTAM/D5W 3.375 G in PREMIXED 1 EACH IV SCH ×3 (06:00→22:10)
[2018-07-26 06:51] LABS: CARBON DIOXIDE 21 mmol/L (21-32); CHLORIDE 120 mmol/L (98-107); CREATININE 2.3 mg/dL (0.6-1.3); GLUCOSE 108 mg/dL (74-106); MAGNESIUM 2.2 mg/dL (1.8-2.4); PHOSPHOROUS 3.1 mg/dL (2.5-4.9); POTASSIUM 4.1 mmol/L (3.5-5.1); UREA NITROGEN, BLOOD 62 mg/dL (7-18)
[2018-07-26] MEDS: CHOLESTYRAMINE/ASPARTAME 4 G/PKT PACKET PO SCH ×2 (07:58→17:07)
[2018-07-26] MEDS: LOSARTAN POTASSIUM 50 MG TABLET PO SCH (08:00)
[2018-07-26] MEDS: METOPROLOL TARTRATE 25 MG TABLET PO SCH ×3 (08:00→21:00)
[2018-07-26] MEDS: CYANOCOBALAMIN 1,000 MCG TABLET PO SCH (08:00)
[2018-07-26] MEDS: RIVASTIGMINE TARTRATE 1.5 MG CAPSULE PO SCH ×3 (08:00→21:00)
[2018-07-26] MEDS: TAMSULOSIN HCL 0.4 MG CAP.SR.24H PO SCH (08:00)
[2018-07-26] MEDS: COLCHICINE 0.6 MG TABLET PO SCH (08:00)
[2018-07-26] MEDS: risperiDONE 0.5 MG TABLET PO SCH ×3 (08:01→21:00)
[2018-07-26] MEDS: LEVETIRACETAM IV 500 MG in IV DEXTROSE 5% 100 ML IV SCH (09:06)
[2018-07-26 09:17] LABS: BASOPHILS # (AUTO) 0.1 K/uL (0.0-8.0); BASOPHILS % (AUTO) 0.7 % (0.0-2.0); EOSINOPHILS # (AUTO) 0.3 K/uL (0.0-0.7); EOSINOPHILS % (AUTO) 2.8 % (0.0-7.0); HEMATOCRIT 37.9 % (36.7-47.1); HEMOGLOBIN 12.6 g/dL (12.5-16.3); LYMPHOCYTES # (AUTO) 1.5 K/uL (20.0-40.0); LYMPHOCYTES % (AUTO) 12.5 % (20.5-51.5); MEAN CORPUSCULAR HEMOGLOBIN 31.7 uug (23.8-33.4); MEAN CORPUSCULAR HGB CONC 33 g/dL (32.5-36.3); MEAN CORPUSCULAR VOLUME 95.4 fL (73.0-96.2); MONOCYTES # (AUTO) 0.8 K/uL (2.0-10.0); PLATELET COUNT (AUTO) 196 K/uL (152-348); RED BLOOD CELL COUNT(AUTO) 3.97 MIL/uL (4.06-5.63); WHITE BLOOD COUNT (AUTO) 11.7 K/uL (3.6-10.2)
[2018-07-26] MEDS ORDERED: PANTOPRAZOLE SODIUM 40 MG TABLET.DR PO ONE (10:45)
[2018-07-26 11:14] VITALS: BP 140/83
[2018-07-26 11:30] VITALS: BP 140/83
[2018-07-26] MEDS: IV D5W 1000ML 1,000 ML IV PRN ×2 (12:31→21:49)
[2018-07-26 14:25] LABS: THYROID STIMULATING HORMONE 3.137 mIU/mL (0.358-3.740)
[2018-07-26 15:00] VITALS: BP 102/61
[2018-07-26 20:30] VITALS: BP 117/65
[2018-07-26] MEDS: ATORVASTATIN 40 MG TABLET PO SCH ×2 (20:46→21:00)
[2018-07-26] MEDS: LEVETIRACETAM 500 MG TABLET PO SCH ×2 (20:46→21:00)
[2018-07-26] MEDS: ACETAMINOPHEN 650 MG SUPP.RECT RC PRN (21:07)
[2018-07-27 03:05] VITALS: BP 98/63
[2018-07-27] MEDS: PIPERACILLIN/TAZOBACTAM/D5W 3.375 G in PREMIXED 1 EACH IV SCH (05:51)
[2018-07-27 06:40] LABS: BASOPHILS # (AUTO) 0.1 K/uL (0.0-8.0); BASOPHILS % (AUTO) 0.5 % (0.0-2.0); EOSINOPHILS # (AUTO) 0.3 K/uL (0.0-0.7); EOSINOPHILS % (AUTO) 2.4 % (0.0-7.0); HEMATOCRIT 37.2 % (36.7-47.1); HEMOGLOBIN 12.2 g/dL (12.5-16.3); LYMPHOCYTES # (AUTO) 1.9 K/uL (20.0-40.0); LYMPHOCYTES % (AUTO) 15.8 % (20.5-51.5); MEAN CORPUSCULAR HEMOGLOBIN 31.7 uug (23.8-33.4); MEAN CORPUSCULAR HGB CONC 33 g/dL (32.5-36.3); MEAN CORPUSCULAR VOLUME 96.5 fL (73.0-96.2); MONOCYTES # (AUTO) 0.9 K/uL (2.0-10.0); MONOCYTES % (AUTO) 7.8 % (0.0-11.0); NEUTROPHILS % (AUTO) 73.5 % (38.5-71.5); PLATELET COUNT (AUTO) 201 K/uL (152-348); RED BLOOD CELL COUNT(AUTO) 3.86 MIL/uL (4.06-5.63); WHITE BLOOD COUNT (AUTO) 12.2 K/uL (3.6-10.2)
[2018-07-27 06:48] LABS: ALANINE AMINOTRANSFERASE 59 U/L (16-63); ALKALINE PHOSPHATASE 246 U/L (50-136); ASPARTATE AMINOTRANSFERASE 32 U/L (15-37); CARBON DIOXIDE 21 mmol/L (21-32); CHLORIDE 118 mmol/L (98-107); CREATININE 3.2 mg/dL (0.6-1.3); GLUCOSE 144 mg/dL (74-106); MAGNESIUM 2.3 mg/dL (1.8-2.4); PHOSPHOROUS 3.9 mg/dL (2.5-4.9); POTASSIUM 3.9 mmol/L (3.5-5.1); TOTAL PROTEIN, SERUM 6.5 g/dL (6.4-8.2)
[2018-07-27 06:51] LABS: UREA NITROGEN, BLOOD 84 mg/dL (7-18)
[2018-07-27] MEDS ORDERED: PANTOPRAZOLE SODIUM 40 MG TABLET.DR PO SCH (07:00)
[2018-07-27] MEDS: CHOLESTYRAMINE/ASPARTAME 4 G/PKT PACKET PO SCH ×2 (08:00→18:00)
[2018-07-27] MEDS: risperiDONE 0.5 MG TABLET PO SCH ×2 (09:00→20:32)
[2018-07-27] MEDS: TAMSULOSIN HCL 0.4 MG CAP.SR.24H PO SCH (09:00)
[2018-07-27] MEDS: LEVETIRACETAM 500 MG TABLET PO SCH (09:00)
[2018-07-27] MEDS: RIVASTIGMINE TARTRATE 1.5 MG CAPSULE PO SCH ×2 (09:00→20:32)
[2018-07-27] MEDS: CYANOCOBALAMIN 1,000 MCG TABLET PO SCH (09:00)
[2018-07-27] MEDS: METOPROLOL TARTRATE 25 MG TABLET PO SCH ×2 (09:00→20:32)
[2018-07-27] MEDS: COLCHICINE 0.6 MG TABLET PO SCH (09:00)
[2018-07-27] MEDS ORDERED: IV NS 1000 ML 1,000 ML IV ONE (09:30)
[2018-07-27] MEDS ORDERED: IV NS 1000 ML 1,000 ML IV PRN (09:30)
[2018-07-27 11:22] VITALS: BP 90/63
[2018-07-27] MEDS: LEVETIRACETAM IV 500 MG in IV DEXTROSE 5% 100 ML IV SCH ×2 (13:28→20:22)
[2018-07-27 15:12] VITALS: BP 127/73
[2018-07-27] MEDS ORDERED: LOSA25TA3 PO (17:22)
[2018-07-27] MEDS ORDERED: Rivastigmine Tartrate PO (17:22)
[2018-07-27] MEDS ORDERED: PIPERACILLIN/TAZOBACTAM/D5W 3.375 G in PREMIXED 1 EACH IV SCH (18:00)
[2018-07-27] MEDS: ACETAMINOPHEN 650 MG SUPP.RECT RC PRN (20:26)
[2018-07-27 20:32] VITALS: BP 136/67
[2018-07-27] MEDS: ATORVASTATIN 40 MG TABLET PO SCH (20:32)
[2018-07-28] MEDS ORDERED: LOSARTAN POTASSIUM 50 MG TABLET PO SCH (09:00)
[2018-07-28] MEDS ORDERED: LOSARTAN POTASSIUM 25 MG TABLET PO SCH (09:00)
== END 2018-07-27 22:50 | disposition short-term general hospital (02) | DRG 871 ==
LOC: MED 19:14
PROVIDERS: ADMIT Hospitalist; ATTEND Hospitalist
PROC: 0HBMXZZ Excision of Right Foot Skin, External Approach (ICD-10-PCS; principal; 2018-07-24)
DX: A41.9 Sepsis, unspecified organism (principal); J69.0 Pneumonitis due to inhalation of food and vomit; G93.41 Metabolic encephalopathy; N17.9 Acute kidney failure, unspecified; E87.0 Hyperosmolality and hypernatremia; R65.20 Severe sepsis without septic shock; G30.9 Alzheimer's disease, unspecified; F02.80 Dementia in other diseases classified elsewhere, unspecified severity, without behavioral disturbance, psychotic disturbance, mood disturbance, and anxiety; G40.909 Epilepsy, unspecified, not intractable, without status epilepticus; F29 Unspecified psychosis not due to a substance or known physiological condition; L89.612 Pressure ulcer of right heel, stage 2; D69.6 Thrombocytopenia, unspecified; I13.10 Hypertensive heart and chronic kidney disease without heart failure, with stage 1 through stage 4 chronic kidney disease, or unspecified chronic kidney disease; N18.9 Chronic kidney disease, unspecified; M10.9 Gout, unspecified; N40.0 Benign prostatic hyperplasia without lower urinary tract symptoms; Z79.899 Other long term (current) drug therapy; E86.0 Dehydration; E78.5 Hyperlipidemia, unspecified; D64.9 Anemia, unspecified; I67.2 Cerebral atherosclerosis; Z68.29 Body mass index [BMI] 29.0-29.9, adult; E66.9 Obesity, unspecified; Z71.3 Dietary counseling and surveillance; I70.0 Atherosclerosis of aorta; M89.9 Disorder of bone, unspecified; N28.1 Cyst of kidney, acquired
CPT/HCPCS: 36415; 70450; 70551; 71045; 74230; 83605; 83735; 84100; 84443; 85025; 87040; 87086; 92526; 92610; 92611; 97110; 97530; A4663; C1758; C9113; G0378; J1953; J2543; J7030; J7042; J7050; J7060; J7070